=== PATIENT | male | born 1985 | race Caucasian/White ===

== ENCOUNTER 2018-04-01 17:42 | Emergency (ER) | payer OTHER, MEDICAID ==
[~2018-04-01] VITALS: Ht 170.2 cm; Wt 69.4 kg
[~2018-04-01 17:42] MED LIST: ALEN70TA5 PO; BETH10TA12 PO; BISA10SU65 PR; CIPR250T27 PO; DIVA500T17 PO; HYDR-3245 PO; LEVO50TA PO; MAGN400O7 PO; PHEN100T90 PO
[2018-04-01 17:44] VITALS: BP 145/90
[2018-04-01 18:23] LABS: MICROSCOPIC NOT IND
[2018-04-01 18:32] LABS: CULTURE INDICATED? NO
== END 2018-04-01 20:26 | disposition home or self-care (01) ==
LOC: ED 18:40
DX: N50.0 Atrophy of testis (principal); R30.0 Dysuria; G40.909 Epilepsy, unspecified, not intractable, without status epilepticus; E07.9 Disorder of thyroid, unspecified
CPT/HCPCS: 76870; 81003; 99285